=== PATIENT | female | born 1985 | race African-American/Black ===

== ENCOUNTER 2017-05-29 07:37 | Emergency (ER) | payer OTHER ==
[~2017-05-29] VITALS: Ht 170.2 cm; Wt 84.0 kg
[2017-05-29] MEDS ORDERED: CYCLOBENZAPRINE 10MG TABLET PO ONE (08:15)
[2017-05-29] MEDS ORDERED: KETOROLAC 60MG/2ML VIAL IM ONE (08:15)
[2017-05-29 10:00] VITALS: BP 121/73
== END 2017-05-29 10:16 | disposition home or self-care (01) ==
LOC: ER 07:50
DX: M25.552 Pain in left hip (principal); R07.89 Other chest pain; J45.909 Unspecified asthma, uncomplicated; V49.88XA Car occupant (driver) (passenger) injured in other specified transport accidents, initial encounter; Y93.89 Activity, other specified; Y92.410 Unspecified street and highway as the place of occurrence of the external cause; Y99.8 Other external cause status
CPT/HCPCS: 71111; 73521; 96372; 99284; J1885; Z7610